=== PATIENT | female | born 1980 | race Caucasian/White ===

== ENCOUNTER 2018-08-25 09:19 | Inpatient (IN) ==
[2018-08-25] MEDS ORDERED: DULCOLAX PR PRN (15:04)
[2018-08-25] MEDS ORDERED: NICODERM PATCH TD PRN (15:04)
[2018-08-25] MEDS ORDERED: TYLENOL PO PRN (15:04)
[2018-08-25] MEDS ORDERED: MAALOX PLUS LIQUID PO PRN (15:04)
[2018-08-25] MEDS ORDERED: ZOFRAN IM PRN (15:04)
[2018-08-25] MEDS ORDERED: IMODIUM PO PRN ×2 (15:04)
[2018-08-25] MEDS ORDERED: SENOKOT PO PRN (15:04)
[2018-08-25] MEDS ORDERED: PHENOBARBITAL IV PRN (15:04)
[2018-08-25] MEDS ORDERED: NICOTINE GUM BUCCAL PRN (15:04)
[2018-08-25] MEDS ORDERED: ZOFRAN IV PRN (15:04)
[2018-08-25] MEDS ORDERED: D5W 1,000 ML IV PRN (15:04)
[2018-08-25] MEDS ORDERED: DESYREL PO PRN (15:04)
[2018-08-25] MEDS ORDERED: ZOFRAN ODT PO PRN (15:04)
[2018-08-25] MEDS ORDERED: TUBERSOL ID ONE (15:04)
[2018-08-25 15:13] LABS: URINE SOURCE CLEAN CATCH
[2018-08-25 15:27] LABS: UR AMPHETAMINES QUAL PRESUMPTIVE POSITIVE (NONE DETECT); UR BARBITUATES QUAL NONE DETECTED (NONE DETECT); UR BENZODIAZEPIN QUAL NONE DETECTED (NONE DETECT); UR CANNABINOIDS QUAL PRESUMPTIVE POSITIVE (NONE DETECT); UR COCAINE QUAL NONE DETECTED (NONE DETECT); UR METHADONE QUAL NONE DETECTED (NONE DETECT); UR METHAMPHETAMINE QUAL NONE DETECTED (NONE DETECT); UR OPIATES QUAL NONE DETECTED (NONE DETECT); UR OXYCODONE QUAL NONE DETECTED (NONE DETECT); UR PCP QUAL NONE DETECTED (NONE DETECT); UR PROPOXYPHENE QUAL NONE DETECTED (NONE DETECT); UR TCA QUAL NONE DETECTED (NONE DETECT)
[2018-08-25 15:30] LABS: HEMATOCRIT 37.5 % (37.0-47.0); MCH 29.8 PG (27-31); MCHC 34.7 g/dL (33-37); MPV 9.1 FL (7.4-10.4); RBC 4.36 XMIL (4.2-5.4); RDW 12.8 % (11.5-14.5); WBC 8.55 X1000 (4.8-10.8)
[2018-08-25 15:42] LABS: BILIRUBIN URINE NEGATIVE (NEGATIVE); BLOOD URINE NEGATIVE (NEGATIVE); CLARITY SL. CLOUDY (CLEAR); COLOR YELLOW; GLUCOSE URINE NEGATIVE (NEGATIVE); KETONE URINE NEGATIVE (NEGATIVE); LEUKOCYTES URINE TRACE (NEGATIVE); NITRITE URINE NEGATIVE (NEGATIVE); PH URINE 6.5; PROTEIN URINE NEGATIVE (NEGATIVE); SP GRAVITY URINE 1.015; UROBILINOGEN URINE NORMAL
[2018-08-25 15:44] LABS: URINE BACTERIA 1+ /HFP; URINE EPITHELIAL CELLS >10 /HPF (<10)
[2018-08-25 15:45] LABS: URINE CAST NONE SEEN /LPF; URINE CRYSTAL NONE SEEN /HPF; URINE WBC <10 /HPF (<10); URINE YEAST NONE SEEN /HPF
[2018-08-25 15:51] LABS: AGAP 9; ALBUMIN 3.9 g/dL (3.5-5.0); ALKALINE PHOSPHATASE 92 U/L (32-104); AMYLASE 59 U/L (20-200); BUN 22 mg/dL (8-22); CALCIUM 9.3 mg/dL (8.8-10.2); CHLORIDE 102 mmol/L (98-107); COSMO 277; CREATININE 0.7 mg/dL (0.5-0.9); ESTIMATED GFR > 60; GLUCOSE 89 mg/dL (70-104); GOT 20 U/L (10-30); GPT 28 U/L (10-36); LIPASE 22 U/L (13-60); POTASSIUM 4.1 mmol/L (3.5-5.1); SODIUM 137 mmol/L (136-145); TCO2 26 mmol/L (25-35)
[2018-08-25 16:14] LABS: INR 0.86; PROTIME 12.2 Seconds (11.0-16.0)
[2018-08-25] MEDS ORDERED: SINEMET 25/100 PO PRN (18:09)
[2018-08-25] MEDS ORDERED: BENTYL PO PRN (18:09)
[2018-08-25] MEDS ORDERED: LIBRIUM PO PRN (18:09)
[2018-08-25] MEDS ORDERED: ROBAXIN PO PRN (18:09)
[2018-08-25] MEDS: SUBOXONE 2 MG/0.5 MG FILM SL SCH (19:19)
[2018-08-26] MEDS: ATARAX PO PRN ×4 (00:11→21:44)
[2018-08-26] MEDS: SEROQUEL PO PRN ×2 (00:11→21:43)
[2018-08-26] MEDS: SYMBICORT 160/4.5 MICROGM INHALER INH SCH ×3 (00:52→19:20)
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
[2018-08-26] MEDS: PROTONIX PO SCH ×2 (05:48→06:59)
[2018-08-26] MEDS: SUBOXONE 2 MG/0.5 MG FILM SL SCH (05:49)
[2018-08-26] MEDS: THERA M PLUS PO SCH (08:24)
[2018-08-26] MEDS: FOLIC ACID PO SCH (08:24)
[2018-08-26] MEDS: VITAMIN B-1 PO SCH (08:24)
[2018-08-26] MEDS: MOTRIN PO PRN ×2 (08:38→18:27)
[2018-08-26] MEDS: SUBUTEX SL SCH ×2 (09:15→16:45)
[2018-08-26] MEDS: KLONOPIN PO SCH ×2 (09:17→21:43)
[2018-08-27] MEDS: SUBUTEX SL SCH ×2 (00:53→09:40)
[2018-08-27] MEDS: PROTONIX PO SCH (06:18)
[2018-08-27] MEDS: SYMBICORT 160/4.5 MICROGM INHALER INH SCH (07:51)
[2018-08-27 07:55] VITALS: BP 125/74
[2018-08-27] MEDS: FOLIC ACID PO SCH (09:40)
[2018-08-27] MEDS: THERA M PLUS PO SCH (09:40)
[2018-08-27] MEDS: KLONOPIN PO SCH (09:40)
[2018-08-27] MEDS: VITAMIN B-1 PO SCH (09:40)
--- NOTE | 2018-08-27 09:48 | PROGRESS NOTE ---
DATE: 08/26/2018 SUBJECTIVE: Patient notes she is feeling better, although states she has started itching. Denies any erythema. Denies any visible rash. She notes that she is itching pretty much all over. PHYSICAL EXAMINATION: Vital Signs: Reviewed and stable. Patient is awake and alert. She is in no current respiratory distress. HEENT: Normocephalic. Neck: Supple. Cardiovascular: Regular rate. No murmurs. Chest: Clear and nonlabored. Abdomen: Soft and nondistended. Extremities: Moves all extremities. Skin: Warm and dry. No rashes. Positive excoriations but no visible rash. ASSESSMENT: 1. Itching, possible due to Suboxone. 2. Nausea and vomiting improved. 3. Tremors improved. 4. Myalgias improved. 5. Opiate abuse withdrawal and stabilization. PLAN: We will change from Suboxone to Subutex to see if this improves her situation. We will continue to follow. Use Atarax if needed. cc: Oleg Peña MD
--- NOTE | 2018-08-29 21:26 | DISCHARGE SUMMARY ---
ADMISSION DATE: 08/25/2018 DISCHARGE DATE: 08/27/2018 DISCHARGE DIAGNOSES: 1. Nausea and vomiting. 2. Abdominal pain. 3. Myalgias. 4. Opiate abuse withdrawal and stabilization. 5. Chronic anxiety, depression. 6. History of myasthenia gravis. CONSULTATIONS: None. PROCEDURES: None. BRIEF HOSPITAL COURSE: The patient is a 37-year-old female who was admitted to the hospital, noted that she was feeling better on Suboxone. Noted that her symptoms were improving but not completely gone. We discussed with her that we may need to increase the dose, but to see how she does with next 12 hour dosing. We could consider increasing on the next time. Ms. Gibson apparently had a visitor sometime in the middle of the afternoon on 08/26 and shortly after then, she was no longer in her room and failed to return. DISPOSITION: No disposition was able to be performed as Ms. Gibson left AMA. cc: Oleg Peña MD
== END 2018-08-27 11:15 | disposition left against medical advice (07) | DRG 894 ==
LOC: P.DIRADM 14:10 → P.MEDSURG 14:29
PROVIDERS: ADMIT Family Medicine; ATTEND Family Medicine
CPT/HCPCS: 80053; 80104; 80301; 80305; 80307; 80320; 81001; 82055; 82150; 83690; 84703; 85027; 85610; 86580; 94640; 94761; A9270; G0431; G0434; G0477; G0480; G6040